=== PATIENT | female | born 1950 | race Caucasian/White ===

== ENCOUNTER 2020-03-04 20:30 | Emergency (ER) | payer OTHER, SELFPAY ==
--- NOTE | ~2020-03-04 | XR_ITS ---
XR chest 2V DATE: 03/04/2020 21:21 INDICATION: Palpitations. Dizziness. TECHNIQUE: PA and lateral views/ COMPARISON: 10/18/2008 PA and lateral chest FINDINGS: Mild cardiomegaly. Mild aortic unfolding. No hilar or mediastinal enlargement. No pulmonary infiltrate or consolidation, pleural effusion or pulmonary vascular congestion or pneumo thorax. Pectus excavatum. Moderate osteopenia. Mild degenerative spurring of the thoracic spine. IMPRESSION: Mild cardiomegaly; no active pulmonary disease Reviewed, dictated and finalized at location A.
[2020-03-04 20:33] VITALS: BP 174/100; PULSE 110; RESP 19; TEMP 36.7; O2SAT 99
--- NOTE | 2020-03-04 20:45 | ECG_ITS ---
Measurements Intervals [place] Rate: 105 P: [place]: 0 QRS: -9 QRSD: 82 T: -5 QT: 342 QTc: 454 Interpretive Statements MULTIFOCAL ATRIAL TACHYCARDIA ATRIAL PREMATURE COMPLEXES VOLTAGE CRITERIA FOR LVH BORDERLINE T WAVE ABNORMALITY- INFERIOR LEADS BASELINE ARTIFACT- I, II, AVR ABNORMAL ECG Electronically Signed On 03-04-2020 21:10:15 CDT by Go Jay D.O.
[2020-03-04] MEDS: LORazepam 0.5 MG TABLET 1 MG PO (21:01)
[2020-03-04 21:06] LABS: Basophils Absolute Auto 0.1 K/mm3 (0.0-0.1); Basophils Percent Auto 0.8 % (0.2-1.2); Eosinophils Absolute Auto 0.2 K/mm3 (0-0.3); Eosinophils Percent Auto 2.1 % (0-4.4); Hematocrit 42.3 % (37.0-47.0); Hemoglobin 14.3 g/dL (12.0-15.0); Immature Granulocyte Absolute 0.04 K/mm3 (0.00-0.031); Immature Granulocyte Percent A 0.4 % (0-0.5); Lymphocytes Absolute Auto 3.33 K/mm3 (0.9-3.2); Lymphocytes Percent Auto 35.2 % (18.3-44.2); Mean Corpuscular HGB Conc 33.8 g/dl (32-36); Mean Corpuscular Volume 88.7 fl (80-100); Monocytes Absolute Auto 0.8 K/mm3 (0.1-0.6); Monocytes Percent Auto 8.4 % (2.6-8.5); Neutrophils Percent Auto 53.1 % (45.5-73.1); Platelet Count Result 348 k/mm3 (150-375); Red Blood Count 4.77 M/mm3 (4.2-5.4); Red Cell Distribution Width 12.4 % (11.5-14.5); White Blood Count 9.5 K/mm3 (4.5-10.0)
--- NOTE | 2020-03-04 21:13 | ED.GENADULT ---
HPI - General Adult General Chief complaint: Arrhythmia/Palpitations Stated complaint: rapid heart rate Time Seen by Provider: 03/04/20 20:33 Source: patient and family Mode of arrival: ambulatory Limitations: no limitations History of Present Illness HPI narrative: Patient is 70 years old white female, used to work as a nurse, been having intermittent dizziness lately, uses Inderal for migraine headache prophylaxis, patient stopped Inderal for 2 days, later started having palpitation, with labile hypertension. History of anxiety, depression, essential tremors. Patient been checking her blood pressure numerous of times a day with different reading each time. Currently patient feeling lightheadedness. Related Data Home Medications Medication Instructions Recorded Confirmed hydrochlorothiazide 25 mg tablet 25 mg PO DAILY 09/27/19 latanoprostene bunod 0.024 % eye 1 drop EACH EYE QPM 09/28/19 drops timolol maleate (PF) 0.5 % eye 1 drop EACH EYE DAILY each 09/28/19 drops in a dropperette Allergies Allergy/AdvReac Type Severity Reaction Status Date / Time topiramate Allergy Intermediate irregular Verified 03/04/20 20:39 heartbeat citalopram [From Celexa] Allergy Mild heart Verified 03/04/20 20:39 racing codeine Allergy Mild ITCHING Verified 03/04/20 20:39 lisinopril Allergy Mild Rash Verified 03/04/20 20:39 metoprolol Allergy Mild Hives Verified 03/04/20 20:39 Review of Systems Review of Systems: Narrative: CONSTITUTIONAL: Denies fever, chills, or sweats. EYES: Denies visual changes, redness, or discharge. ENT: Denies rhinorrhea, congestion, sore throat, or otalgia. CARDIOVASCULAR: Palpitation, denies shortness of breath or chest pain RESPIRATORY: Denies cough or dyspnea. GASTROINTESTINAL: Denies abdominal pain, nausea, vomiting, or diarrhea. GENITOURINARY: Denies dysuria or hematuria. SKIN: Denies rash or itching. MUSCULOSKELETAL: Denies back pain, joint pain, or myalgia. NEUROLOGIC: Denies headache, numbness, or weakness. PSYCHIATRIC: Denies anxiety or depression. [facility] Family History Family History Mother Patient's mother is Father Patient's father is Sibling Patient's brother is Social History Social History Smoking status: Former smoker Second hand tobacco smoke exposure: No Smoking end date: 07/20/85 Alcohol intake: current Substance use: never Exam Narrative: Exam Narrative: General appearance: Well-developed, well-nourished Skin: Normal color Head: Normocephalic, nontraumatic Eyes: Clear conjunctiva ENT: Oropharynx normal, ears normal, nose normal Neck: Supple, nontender Chest and respiratory: Airway patent, no respiratory distress, no accessory muscle use Heart: Irregular irregularity Abdomen: Soft, nontender, no organomegaly, quiet bowel sounds Vascular: Normal peripheral pulses, normal capillary refill. Musculoskeletal: Normal range of motion, nontender back Neurologic: Alert and oriented ?3, CLINICAL EDUCATION MANAGER is normal as tested, no gross motor deficit Course Course Emergency Course: Stable Vital Signs Vital signs: Vital Signs Temperature 36.7 C 03/04/20 20:33 Pulse Rate 110 H 03/04/20 20:33 Respiratory Rate 19 03/04/20 20:33 Blood Pressure 174/100 H 03/04/20 20:33 Pulse Oximetry 99 03/04/20 20:33 Temperature 36.7 C 03/04/20 20:33 Pulse Rate 88 03/04/20 22:12 Respiratory Rate 19 03/04/20 22:12 Blood Pressure 152/84 H 03/04/20 22:12 Pulse Oximetry 98 03/04/20 22:12 Medical Decision Making [facility]
[2020-03-04 21:16] LABS: INR 0.9; Prothrombin Time 12.3 Seconds (11.1-14.7)
--- NOTE | 2020-03-04 21:16 | PC.NURSE ---
Patient being taken to radiology.
[2020-03-04 21:17] LABS: Partial Thromboplastin Time 26.4 SECONDS (22.3-36.8)
[2020-03-04 21:29] LABS: Troponin I < 0.012 ng/mL (0.000-0.034)
[2020-03-04 22:12] VITALS: BP 152/84; PULSE 88; RESP 19; O2SAT 98
--- NOTE | 2020-03-04 22:13 | ECG_ITS ---
Measurements Intervals [place] Rate: 91 P: 67 [place]: 179 QRS: -7 QRSD: 85 T: 4 QT: 338 QTc: 417 Interpretive Statements SINUS RHYTHM SUPRAVENTRICULAR TRIGEMINY BORDERLINE T WAVE ABNORMALITY- INFERIOR LEADS ABNORMAL ECG Electronically Signed On 03-05-2020 6:59:32 CDT by Go Jay D.O.
[2020-03-04 22:50] VITALS: BP 154/83; PULSE 86; RESP 20; O2SAT 99
== END 2020-03-04 22:48 | disposition home or self-care (01) ==
PROVIDERS: Emergency Provider Emergency Medicine; PCP Internal Medicine
DX: R42 Dizziness and giddiness (principal); R00.2 Palpitations; F41.9 Anxiety disorder, unspecified; Z87.891 Personal history of nicotine dependence
CPT/HCPCS: 36415; 71046; 84443; 84484; 85025; 85610; 85730; 93005; 99284; A9270

== ENCOUNTER 2020-03-15 10:44 | Outpatient (CLI) | payer OTHER, MEDICARE, SELFPAY ==
--- NOTE | 2020-03-19 11:50 | WPDHOLTEREM ---
Holter/Event Monitor Holter/Event Monitor Date of procedure: 03/15/20 Procedure Type: 24 hour holter monitor Indications: Palpitations Conclusion: 1. 24 hour holter monitor on 03/15/20. 2. Predominant rhythm is sinus rhythm. HR range 55-133 bpm; average HR 74 bpm. 3. There are 98 premature supraventricular complexes and 16 supraventricular couplets. There are 4 short runs of atrial tachycardia, fastest at 133 bpm and longest lasting 5 beats. 4. There are 1,140 premature ventricular complexes, 3 ventricular couplets, 27 ventricular bigeminy and 8 ventricular trigeminy. No ventricular tachycardia. 5. No sinoatrial or atrioventricular blocks. No significant pauses greater than 2 seconds. 6. Patient reports symptoms of dizziness, irregular beats which demonstrate sinus rhythm, HR range 61-91 bpm.
== END 2020-03-15 10:45 | disposition home or self-care (01) ==
PROVIDERS: PCP Internal Medicine; Visit Provider Internal Medicine
DX: R00.2 Palpitations (principal)
CPT/HCPCS: 93225; 93226

== ENCOUNTER 2020-05-02 12:19 | Outpatient (CLI) | payer OTHER, SELFPAY ==
--- NOTE | ~2020-05-02 | MM_ITS ---
EXAMINATION: MM screening nima BI w migdalia HISTORY: Screening TECHNIQUE: Craniocaudal and mediolateral oblique 3-D tomosynthesis images were obtained and synthetic 2-D images were generated. CAD analysis was submitted and interpreted. COMPARISON: Comparison to multiple prior studies sequentially, with oldest reviewed study dated 07/30. BREAST PARENCHYMAL COMPOSITION: There are scattered areas of fibroglandular density. FINDINGS: There is no evidence of suspicious mass, calcification, or architectural distortion to sugg est malignancy in either breast. There has been no suspicious interval change. IMPRESSION: 1. No mammographic evidence of malignancy. 2. Recommend routine screening mammography in one year. BI-RADS Category 1: Negative Reviewed, dictated and finalized at location D.
== END 2020-05-02 12:20 | disposition home or self-care (01) ==
LOC: ANHIMG 12:24
PROVIDERS: PCP Internal Medicine; Visit Provider Internal Medicine
DX: Z12.31 Encounter for screening mammogram for malignant neoplasm of breast (principal)
CPT/HCPCS: 77063; 77067

== ENCOUNTER 2020-06-10 14:03 | Emergency (ER) | payer OTHER, SELFPAY ==
--- NOTE | ~2020-06-10 | XR_ITS ---
EXAMINATION: XR chest 2V DATE: 06/10/2020 15:24 INDICATION: Hypertension. Palpitations. TECHNIQUE: PA and lateral views of the chest were obtained. COMPARISON: Chest radiograph dated 03/04/[address] dated 08/11/2011 FINDINGS: No significant change in mild opacities along the anterior lung bases which appear to correspond to s mall bilateral paracardial fat pads and adjacent mild atelectasis at the lingula and right middle lob e. Calcified nodule at the left lung base consistent with old granulomatous disease. No new airspace opacities, pulmonary edema, pleural effusion or pneumothorax. The cardiomediastinal silhouette is nor mal. Moderate thoracic spondylosis with chronic minimal anterior wedging of a few mid and lower thora cic vertebral bodies. Mild pectus excavatum. IMPRESSION: 1. Chronic mild atelectasis/scarring at the bilateral anterior lung bases. No other acute cardiopulmo nary disease. Reviewed, dictated and finalized at location . [facility] IMPRESSION: 1. Chronic mild atelectasis/scarring at the bilateral anterior lung bases. No o ther acute cardiopulmonary disease.
--- NOTE | 2020-06-10 14:14 | ECG_ITS ---
Measurements Intervals [place] Rate: 93 P: -3 PA: 155 QRS: 46 QRSD: 93 T: 91 QT: 347 QTc: 432 Interpretive Statements SINUS RHYTHM DELAYED PRECORDIAL R/S TRANSITION BASELINE ARTIFACT- II, III, AVL, AVF, V1 BORDERLINE ECG Electronically Signed On 06-10-2020 17:15:20 SPORTS INFORMATION DIRECTOR by Go Jay D.O.
[2020-06-10 14:26] VITALS: BP 166/102; PULSE 60; RESP 20; TEMP 36.6; O2SAT 99
[2020-06-10 14:45] LABS: Basophils Absolute Auto 0.1 K/mm3 (0.0-0.1); Basophils Percent Auto 0.8 % (0.2-1.2); Eosinophils Absolute Auto 0.2 K/mm3 (0-0.3); Eosinophils Percent Auto 1.9 % (0-4.4); Hematocrit 41.6 % (37.0-47.0); Hemoglobin 14.3 g/dL (12.0-15.0); Immature Granulocyte Absolute 0.02 K/mm3 (0.00-0.031); Immature Granulocyte Percent A 0.2 % (0-0.5); Lymphocytes Absolute Auto 2.88 K/mm3 (0.9-3.2); Lymphocytes Percent Auto 32.3 % (18.3-44.2); Mean Corpuscular HGB Conc 34.4 g/dl (32-36); Mean Corpuscular Hemoglobin 29.7 pg (26-34); Mean Corpuscular Volume 86.3 fl (80-100); Mean Platelet Volume 9.4 fl (7.4-10.4); Monocytes Absolute Auto 0.6 K/mm3 (0.1-0.6); Monocytes Percent Auto 7.1 % (2.6-8.5); Neutrophils Absolute Auto 5.1 K/mm3 (1.3-6.7); Neutrophils Percent Auto 57.7 % (45.5-73.1); Platelet Count Result 342 k/mm3 (150-375); Red Blood Count 4.82 M/mm3 (4.2-5.4); Red Cell Distribution Width 12.3 % (11.5-14.5); White Blood Count 8.9 K/mm3 (4.5-10.0)
[2020-06-10 15:01] LABS: Anion Gap 12 mmol/L (8-16); Blood Urea Nitrogen 12 mg/dL (7-17); Calcium 9.2 mg/dL (8.4-10.2); Carbon Dioxide 26 mmol/L (22-30); Chloride 99 mmol/L (98-107); Estimated Glomerular Filt Rate > 60; Glucose 112 mg/dL (65-105); Potassium 4.1 mmol/L (3.4-5.0); Sodium 137 mmol/L (137-145)
--- NOTE | 2020-06-10 15:13 | ED.ARRPALP ---
HPI - Arrhythmia/Palpitations General Chief Complaint: Arrhythmia/Palpitations Stated Complaint: low heart rate Time Seen by Provider: 06/10/20 14:24 History of Present Illness HPI narrative: Patient is a 70-year-old female who presents to the ER with palpitations. She reports that she has been following her pulse at home at the recommendation of her airplane patrol pilot. Reports for about an hour her heart rate had been in the 40s and dropped as low as 39 bpm. She reports she has been feeling lightheaded all day. Chart review shows that this lightheadedness/dizziness has been a chronic issue for her. She has seen her primary care doctor. She is having Holter monitor. Recent Holter monitoring showed bradycardia as low as 55 bpm and tachycardia up to 113 bpm. Patient reports also last 24 hours she had an episode of tachycardia up to 166 bpm for which she went and laid down to rest. She has had no chest pain or chest pressure. She is not feeling her heart race. She has not been taking her Inderal as she is concerned it may occur blood pressure or heart rate to low. Related Data Allergies Allergy/AdvReac Type Severity Reaction Status Date / Time topiramate Allergy Intermediate irregular Verified 06/10/20 15:50 heartbeat citalopram [From Celexa] Allergy Mild heart Verified 06/10/20 15:50 racing codeine Allergy Mild ITCHING Verified 06/10/20 15:50 lisinopril Allergy Mild Rash Verified 06/10/20 15:50 metoprolol Allergy Mild Hives Verified 06/10/20 15:50 Review of Systems Review of Systems: All systems reviewed & are unremarkable except as noted in HPI and below Constitutional: Constitutional: Denies chills, Denies fever(s) and Denies weakness Comments: Endorses feeling off. Cardiovascular: Cardiovascular: Denies chest pain, Denies rapid heart rate and Denies radiating jaw, neck or arm pain Respiratory: Respiratory: Denies cough, Denies dyspnea and Denies wheezing Gastrointestinal: Gastrointestinal: Denies nausea and Denies vomiting Neurologic: Denies syncope, Denies focal weakness and Denies numbness [facility] Past Medical History Medical History (Updated 06/10/20 @ 16:50 by Jacoby Carrasco MD) Bigeminy Dizziness Hyperglycemia Hyperlipidemia Migraine with aura, not intractable, without status migrainosus Thrombocytopenia, unspecified Family History Family History Mother Patient's mother is Father Patient's father is Sibling Patient's brother is Social History Social History Smoking status: Former smoker Second hand tobacco smoke exposure: No Smoking end date: 07/20/85 Alcohol intake: current Substance use: never Exam Narrative: Exam Narrative: GENERAL: Well-appearing, well-nourished, and in no acute distress. HEAD: Normocephalic, atraumatic. CHEST: Clear to auscultation. No respiratory distress. HEART: Regular rate and rhythm. Normal peripheral pulses. EXTREMITIES: Normal range of motion. No edema. SKIN: Warm, dry, no rash. NEURO: Alert and oriented x3. PSYCH: Normal mood and affect. Course Course Emergency Course: Unremarkable labs. No ectopy or bradycardia while in the ER. Normotensive. Discussed case with Dr. Tucker had no additional recommendations. We did discuss the previous Holter monitor results but not the current ones as they are not available. Patient should contact Dr. Blue's office tomorrow to schedule follow-up and further discussion. Patient does not seem to be having symptoms when she has her abnormal heart rate on her monitor. Educated patient on signs and symptoms that may occur with an abnormal heart rate for which she should be seeking evaluation in the ER. Patient verbalized understanding. Patient seems to have significant anxiety regarding her ectopy and heart rate. Vital Signs Vital
[2020-06-10 15:20] VITALS: BP 142/77; PULSE 79; RESP 16; O2SAT 98
[2020-06-10 15:50] LABS: Magnesium 1.8 mg/dL (1.6-2.3)
[2020-06-10 16:00] VITALS: BP 147/88; PULSE 75; RESP 16; O2SAT 98
[2020-06-10 17:00] VITALS: BP 153/91; PULSE 72; RESP 16; O2SAT 99
== END 2020-06-10 17:00 | disposition home or self-care (01) ==
PROVIDERS: Emergency Provider Emergency Medicine; PCP Internal Medicine
DX: R00.2 Palpitations (principal); E78.5 Hyperlipidemia, unspecified; Z87.891 Personal history of nicotine dependence; R94.31 Abnormal electrocardiogram [ECG] [EKG]
CPT/HCPCS: 36415; 71046; 80048; 83735; 85025; 93005; 99284

== ENCOUNTER → 2020-12-01 01:43 | Outpatient (CLI) | payer OTHER, SELFPAY ==
[2020-12-01 19:43] LABS: SARS-CoV-2 RNA PCR Negative
== END ==
PROVIDERS: PCP Internal Medicine; Visit Provider Internal Medicine Gastroenterology
DX: Z01.812 Encounter for preprocedural laboratory examination (principal); Z20.822 Contact with and (suspected) exposure to COVID-19
CPT/HCPCS: C9803; U0003; U0005

== ENCOUNTER 2020-12-04 02:25 | Day surgery (SDC) | payer OTHER, SELFPAY ==
[2020-11-23 15:35] VITALS: BMI 28.8
[2020-12-04 08:21] VITALS: BP 133/87; PULSE 45; RESP 18; TEMP 36.3; O2SAT 98; BMI 28.8
--- NOTE | 2020-12-04 08:34 | WPDGICN ---
Assessment and Plan Assessment and plan (1) Family history of colonic polyps: Code(s): Z83.71 - Family history of colonic polyps Status: Acute Assessment and Plan: Patient's sister has had colon polyps. Her uncle is had colon cancer. Plan is for surveillance colonoscopy at this time. This should likely be considered at intervals in the future as well. Further recommendations will be given after colonoscopy. GI Consult Note Consult date/time: 12/04/20 08:34 HPI: Dot Hooper is a 70 year old female Presents for screening colonoscopy. Patient's family history is significant that her sister had colon polyps. Patient's maternal uncle also had colon cancer. Patient reports her last exam was perhaps 10 years ago. Patient's current weight appetite bowel movements are normal. She denies any blood in her stools were she denies abdominal pain. Review of Systems Review of Systems: All systems reviewed & are unremarkable except as noted in HPI and below PMFSH Past Medical History Medical History (Updated 12/04/20 @ 08:36 by Odell Valentin MD) Anxiety Bigeminy Dizziness GERD (gastroesophageal reflux disease) Hyperglycemia Hyperlipidemia Meniere disease Migraine with aura, not intractable, without status migrainosus Thrombocytopenia, unspecified Family History Family History Mother Patient's mother is Father Patient's father is Sibling Patient's brother is Social History Social History Years smoked: 20 Smoking status: Former smoker Second hand tobacco smoke exposure: No Smoking end date: 07/20/85 Alcohol intake: current Alcohol use details: very rarely Substance use: never Living arrangements: alone Spiritual care concerns: No Meds Home Medications and Allergies Home Medications Medication Instructions Recorded Confirmed Type meclizine 25 mg tablet 25 mg PO TID PRN #60 tablet 03/05/20 11/23/20 Rx ondansetron 4 mg disintegrating 4 mg PO Q8H PRN #30 tablet 06/26/20 11/23/20 Rx tablet sumatriptan succinate 100 mg tablet See Rx Instructions PO .COMPLEX 06/26/20 11/23/20 Rx #12 tablet lorazepam 1 mg tablet 1 mg PO BID PRN #30 tablet 11/05/20 11/23/20 Rx sodium,potassium,mag sulfates 17.5 See Rx Instructions PO .COMPLEX 11/14/20 11/23/20 Rx gram-3.13 gram-1.6 gram oral soln #354 ml hydrochlorothiazide 25 mg PO DAILY PRN 11/23/20 11/23/20 History propranolol [Inderal] 60 mg PO DAILY 11/23/20 11/23/20 History Allergies Allergy/AdvReac Type Severity Reaction Status Date / Time topiramate Allergy Intermediate irregular Verified 12/04/20 08:20 heartbeat citalopram [From Celexa] Allergy Mild heart Verified 12/04/20 08:20 racing codeine Allergy Mild ITCHING Verified 12/04/20 08:20 lisinopril Allergy Mild Rash Verified 12/04/20 08:20 metoprolol Allergy Mild Hives Verified 12/04/20 08:20 verapamil AdvReac Severe Headache Verified 12/04/20 08:20 Vital Signs Vital Signs - 24 hr 12/04/20 08:21 Temperature 97.4 F L Pulse Rate 45 L Respiratory Rate 18 Blood Pressure 133/87 Pulse Oximetry 98 Exam Narrative: Exam Narrative: Physical exam reveals patient be alert. Vital signs stable. HEENT exam is unremarkable. Lungs are clear to auscultation and percussion. Heart is without murmur or extra sounds. Abdominal exam bowel sounds are present soft nontender with no organomegaly. Digital external rectal exam is normal.
[2020-12-04] MEDS: LACTATED RINGERS 1,000 ML 150 ML IV CONT (08:39)
--- NOTE | 2020-12-04 08:46 | WPDANESEPPF ---
Anes - Initial Pre Proc Eval Procedure: Operation Date: 12/04/20 09:45 Proposed Procedures p Screening Colonoscopy - Odell Valentin MD Date/Time: 12/04/20 08:46 Surgeon: Odell Valentin MD Pre Op Diagnosis: neoplasm screening Patient Data Age: 70 Gender: F Height: 1.73 m Weight: 85.9 kg Last Vital Signs Temp 36.3 C L 12/04/20 08:21 Pulse 45 L 12/04/20 08:21 Resp 18 12/04/20 08:21 BP 133/87 12/04/20 08:21 Pulse Ox 98 12/04/20 08:21 Allergies Allergy/AdvReac Type Severity Reaction Status Date / Time topiramate Allergy Intermediate irregular Verified 12/04/20 08:20 heartbeat citalopram [From Celexa] Allergy Mild heart Verified 12/04/20 08:20 racing codeine Allergy Mild ITCHING Verified 12/04/20 08:20 lisinopril Allergy Mild Rash Verified 12/04/20 08:20 metoprolol Allergy Mild Hives Verified 12/04/20 08:20 verapamil AdvReac Severe Headache Verified 12/04/20 08:20 Home Medications Medication Instructions Recorded Confirmed Type meclizine 25 mg tablet 25 mg PO TID PRN #60 tablet 03/05/20 11/23/20 Rx ondansetron 4 mg disintegrating 4 mg PO Q8H PRN #30 tablet 06/26/20 11/23/20 Rx tablet sumatriptan succinate 100 mg tablet See Rx Instructions PO .COMPLEX 06/26/20 11/23/20 Rx #12 tablet lorazepam 1 mg tablet 1 mg PO BID PRN #30 tablet 11/05/20 11/23/20 Rx sodium,potassium,mag sulfates 17.5 See Rx Instructions PO .COMPLEX 11/14/20 11/23/20 Rx gram-3.13 gram-1.6 gram oral soln #354 ml hydrochlorothiazide 25 mg PO DAILY PRN 11/23/20 11/23/20 History propranolol [Inderal] 60 mg PO DAILY 11/23/20 11/23/20 History Patient hx anesthesia problems: none Family hx anesthesia problems: none PMFSH Past Medical History Medical History (Updated 12/04/20 @ 08:36 by Odell Valentin MD) Anxiety Bigeminy Dizziness GERD (gastroesophageal reflux disease) Hyperglycemia Hyperlipidemia Meniere disease Migraine with aura, not intractable, without status migrainosus Thrombocytopenia, unspecified Family History Family History Mother Patient's mother is Father Patient's father is Sibling Patient's brother is Social History Social History Years smoked: 20 Smoking status: Former smoker Second hand tobacco smoke exposure: No Smoking end date: 07/20/85 Alcohol intake: current Alcohol use details: very rarely Substance use: never Living arrangements: alone Spiritual care concerns: No Anes - Eval Final PreProcedure Day of Procedure 12/04/20 08:46 Patient weight: overweight Heart: regular rate and rhythm Lungs: clear to auscultation and normal air movement Airway: Mallampati scale class II Neurological: alert and oriented Last oral intake: >/= 8 hours ASA classification: III Emergent: no Anesthetic plan: proceed Anesthesia type and monitoring: general GIVS and standard monitoring Informed Consent: The patient's anesthetic plan and its attendant risks and benefits were discussed with the patient/family/POA. Questions were solicited and answers provided to the satisfaction of the patient/family/POA.
[2020-12-04 09:39] VITALS: BP 110/69; PULSE 77; RESP 16; O2SAT 97
[2020-12-04 09:49] VITALS: BP 114/73; PULSE 68; RESP 21; O2SAT 98
[2020-12-04 09:59] VITALS: BP 141/82; PULSE 66; RESP 20; O2SAT 98
== END 2020-12-04 10:13 | disposition home or self-care (01) ==
PROVIDERS: PCP Internal Medicine; Visit Provider Internal Medicine Gastroenterology
PROC: 0DJD8ZZ Inspection of Lower Intestinal Tract, Via Natural or Artificial Opening Endoscopic (ICD-10-PCS; CPT 45378; principal; 2020-12-04 09:45)
DX: Z12.11 Encounter for screening for malignant neoplasm of colon (principal); K57.30 Diverticulosis of large intestine without perforation or abscess without bleeding; Z83.71 Family history of colonic polyps; E78.5 Hyperlipidemia, unspecified; K21.9 Gastro-esophageal reflux disease without esophagitis; F41.9 Anxiety disorder, unspecified; Z87.891 Personal history of nicotine dependence
CPT/HCPCS: G0105; J2704; J7120

== ENCOUNTER 2021-01-11 15:42 | Outpatient (CLI) | payer OTHER, SELFPAY ==
--- NOTE | ~2021-01-11 | CT_ITS ---
EXAMINATION: CT abdomen pelvis w con DATE: 01/11/2021 16:45 INDICATION: Left lower quadrant abdominal pain. TECHNIQUE: Computed tomography (CT) of the abdomen and pelvis was performed with 100 mL Omnipaque 350 intravenous contrast. Automated exposure control and iterative reconstruction technique were employe d. The dose-length product was 734.66 mGy-cm. COMPARISON: CT pelvis 10/04/2010, chest CT 08/11/2011 FINDINGS: The visualized portions of the lung bases demonstrate mild atelectasis and mild chronic josé miguel g disease. There is mild bronchiectasis bilaterally. There is a chronic 4 mm nodule in left lower lob e, likely benign. No pleural effusion. There is left atrial enlargement the heart. No pericardial eff usion. There is a moderate-sized sliding hiatal hernia. The liver, gallbladder, spleen, pancreas, adr enal glands, and left kidney are normal. There is a 5 mm cyst in right kidney. There is diverticulosi s of the colon without evidence of diverticulitis. There are no dilated loops of bowel. The appendix is normal. There are no pathologically enlarged lymph nodes. There is no free intraperitoneal fluid. There is severe lower lumbar spondylosis. There is moderate thoracic spondylosis. IMPRESSION: 1. Moderate-sized sliding hiatal hernia. Reviewed, dictated and finalized at location A.
[2021-01-11 16:32] LABS: Estimated Glomerular Filt Rate 44
== END 2021-01-11 15:43 | disposition home or self-care (01) ==
PROVIDERS: PCP Internal Medicine; Visit Provider Internal Medicine
DX: R10.9 Unspecified abdominal pain (principal); K44.9 Diaphragmatic hernia without obstruction or gangrene
CPT/HCPCS: 74177; Q9967

== ENCOUNTER 2021-05-04 07:25 | Outpatient (CLI) | payer OTHER, SELFPAY ==
--- NOTE | ~2021-05-04 | MM_ITS ---
EXAMINATION: MM screening nima BI w migdalia HISTORY: Screening mammogram TECHNIQUE: Craniocaudal and mediolateral oblique 3-D tomosynthesis images were obtained and synthetic 2-D images were generated. CAD analysis was submitted and interpreted. COMPARISON: 05/02/2020, 03/01/2019, 02/20/2018 bilateral digital screening mammogram examinations BREAST PARENCHYMAL COMPOSITION: There are scattered areas of fibroglandular density. FINDINGS: There is no evidence of suspicious mass, calcification, or architectural distortion to sugg est malignancy in either breast. There has been no suspicious interval change. IMPRESSION: 1. No mammographic evidence of malignancy. 2. Recommend routine screening mammography in one year. BI-RADS Category 1: Negative Reviewed, dictated and finalized at location A.
== END 2021-05-04 07:26 | disposition home or self-care (01) ==
LOC: ANHIMG 07:27
PROVIDERS: PCP Internal Medicine; Visit Provider Internal Medicine
DX: Z12.31 Encounter for screening mammogram for malignant neoplasm of breast (principal)
CPT/HCPCS: 77063; 77067

== ENCOUNTER 2021-05-15 13:05 | Outpatient (RCR) | payer OTHER, SELFPAY ==
--- NOTE | 2021-05-15 15:49 | PTOPEVAL ---
PHYSICAL THERAPY EVALUATION Thank you for referring Dot Hooper to [facility].? Dot was evaluated for the dx of BPPV. The patient is scheduled to be seen for therapy? 1 x/week for up to 4 weeks (depending on recovery time). Please review, sign, date and return this plan of care REBECCA. I agree with and certify that the following plan of care is medically necessary. 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 The patient reports having dizziness that is worse more often when she sits down after being very busy on her feet. The symptoms will last a few minutes and are moderate to severe. The never affects during sleep or laying. Patient will get nauseated at times and the symptoms are slower to recover. The patient will look up and tip head back which controls nausea but must stay tipped for more than 5 minutes or symptoms will return. Diagnostic Tests Other Tests For This Problem Yes: meds checked, BP checked, EKG clear, Prior Level of Function Medications Home Meds (Include: OTC, RX, Vitamins, endural, HCTZ, emitrex prn, Herbals, Dose, Route,and Frequency) advil prn, benadryl prn for Query Text:Home Med Entries Will No migraine relief Longer Recall From Past Visits. Home Meds Must Be Re-entered With Each Visit. Pain Assessment Timing of Pain Assessment Timing of Pain Assessment Assessment Self Report Self Report Pain Level 0 Pain Score Pain Score 0: Self Report Cervical and Lumbar ROM Cervical ROM Reason Not Measured WFL/Left,WFL/Right Upper Extremity Range of Motion General Upper Extremity Range of Motion Reason Not Measured
--- NOTE | 2021-05-27 13:45 | PCPTNOTE ---
Patient called & cancelled scheduled appointment this date due to not feeling well.
--- NOTE | 2021-05-31 16:17 | PCPTNOTE ---
PHYSICAL THERAPY DISCHARGE Attending Provider: Jamie Dee MD Patient:Dot Hooper Date of :1950 Patient has not returned for any further treatments since 05/15/2021. The patient had completed her exercises and gained relief of the vertigo, therefore she had no further PT needs, and will be discharged at this time. Information gathered from a phone call to the patient after cancelling her 2nd appt. Patient?s initial visit was on 05/15/2021 13:15 and she had a total of 1 visit. The goals have been met. Thank you for referring this patient to [facility]. Please review, sign, date and return this discharge summary REBECCA. I have been updated about the patient's current status and I agree with discharge from the above service at this time. Referring Physician Date
--- NOTE | 2021-05-31 16:21 | PCPTNOTE ---
PT called pt since pt cancelled 2nd/only follow up visit. Patient had had Covid booster and became violently ill afterwards so she was unable to come in. Phone conversation indicates that pt is recovered from dizziness through a change in medication administration and has been free of dizziness since the change. The patient reports no further PT needs and PT agrees.
== END 2021-06-03 16:36 | disposition home or self-care (01) ==
LOC: ANHPT 13:05
PROVIDERS: PCP Internal Medicine; Visit Provider Otolaryngology
DX: H81.10 Benign paroxysmal vertigo, unspecified ear (principal)
CPT/HCPCS: 97110; 97162

== ENCOUNTER 2021-05-25 12:49 | Emergency (ER) | payer OTHER, SELFPAY ==
[2021-05-25] VITALS (22 sets, daily range): BP systolic 150–181; BP diastolic 77–114; PULSE 62–92; RESP 9–22; TEMP 36.6–36.7; O2SAT 95–98
[2021-05-25 13:17] LABS: Basophils Absolute Auto 0.1 K/mm3 (0.0-0.1); Basophils Percent Auto 0.6 % (0.2-1.2); Eosinophils Absolute Auto 0.1 K/mm3 (0-0.3); Eosinophils Percent Auto 1.6 % (0-4.4); Hematocrit 42.6 % (37.0-47.0); Hemoglobin 14.4 g/dL (12.0-15.0); Immature Granulocyte Absolute 0.03 K/mm3 (0.00-0.031); Immature Granulocyte Percent A 0.4 % (0-0.5); Lymphocytes Absolute Auto 2.21 K/mm3 (0.9-3.2); Lymphocytes Percent Auto 27.6 % (18.3-44.2); Mean Corpuscular HGB Conc 33.8 g/dl (32-36); Mean Corpuscular Hemoglobin 30.3 pg (26-34); Mean Corpuscular Volume 89.5 fl (80-100); Mean Platelet Volume 9.3 fl (7.4-10.4); Monocytes Absolute Auto 0.6 K/mm3 (0.1-0.6); Monocytes Percent Auto 7.2 % (2.6-8.5); Neutrophils Percent Auto 62.6 % (45.5-73.1); Platelet Count Result 330 k/mm3 (150-375); Red Blood Count 4.76 M/mm3 (4.2-5.4); Red Cell Distribution Width 12.7 % (11.5-14.5)
[2021-05-25 13:27] LABS: Partial Thromboplastin Time 26.4 SECONDS (22.3-36.8); Prothrombin Time 13.2 Seconds (11.1-14.7)
[2021-05-25 13:29] LABS: Alanine Aminotransferase 18 U/L (4-35); Albumin Level 4.5 g/dL (3.5-5.1); Alkaline Phosphatase 69 U/L (38-126); Anion Gap 7 mmol/L (8-16); Aspartate Amino Transferase 27 U/L (14-36); Bilirubin,Total 1.9 mg/dL (0.2-1.3); Blood Urea Nitrogen 10 mg/dL (7-17); Calcium 9.5 mg/dL (8.4-10.2); Carbon Dioxide 28 mmol/L (22-30); Chloride 104 mmol/L (98-107); Estimated CRCL calculation 52 ml/min; Estimated Glomerular Filt Rate 55; Glucose 117 mg/dL (65-110); Sodium 139 mmol/L (137-145)
--- NOTE | 2021-05-25 13:45 | ED.GIBLEED ---
HPI - GI Bleed General Chief complaint: GI Bleed Stated complaint: rectal bleed Time Seen by Provider: 05/25/21 13:01 History of Present Illness HPI Narrative: Patient is a 71-year-old female who presents ER with concerns for GI bleed. Patient had a Covid booster shot yesterday. Then in the evening after eating a frozen chicken pot pie she ended up having 5-6 episodes of violent diarrhea with terrible abdominal cramping. When she woke up today she still had some mild discomfort in her lower abdomen that was cramping but then she passed several blood clots when she had a bowel movement which concerned her. They were bright red. She does have history of diverticulosis and internal hemorrhoids however the internal hemorrhoids had resolved on a recent colonoscopy. She has no nausea or vomiting. She is feeling well at this time. Related Data Home Medications Medication Instructions Recorded Confirmed hydrochlorothiazide 25 mg PO DAILY PRN 11/23/20 01/01/21 Allergies Allergy/AdvReac Type Severity Reaction Status Date / Time topiramate Allergy Intermediate irregular Verified 05/25/21 13:27 heartbeat citalopram [From Celexa] Allergy Mild heart Verified 05/25/21 13:27 racing codeine Allergy Mild ITCHING Verified 05/25/21 13:27 lisinopril Allergy Mild Rash Verified 05/25/21 13:27 metoprolol Allergy Mild Hives Verified 05/25/21 13:27 verapamil AdvReac Severe Headache Verified 05/25/21 13:27 gemfibrozil [From Lopid] AdvReac Vomiting Verified 05/25/21 13:27 Review of Systems Review of Systems: All systems reviewed & are unremarkable except as noted in HPI and below Constitutional: Constitutional: Denies chills, Denies fever(s) and Denies weakness ENT: Denies nasal congestion and Denies sore throat Respiratory: Respiratory: Denies cough, Denies dyspnea and Denies wheezing Gastrointestinal: Gastrointestinal: Reports abdominal pain, Reports diarrhea, Denies nausea and Denies vomiting Genitourinary: Genitourinary: Denies nocturia, Denies dysuria and Denies flank pain PMFSH Past Medical History Medical History Anxiety Bigeminy Dizziness GERD (gastroesophageal reflux disease) Hyperglycemia Hyperlipidemia Meniere disease Migraine with aura, not intractable, without status migrainosus Thrombocytopenia, unspecified Family History Family History Mother Patient's mother is Father Patient's father is Sibling Patient's brother is Social History Social History Years smoked: 20 Smoking status: Former smoker Second hand tobacco smoke exposure: No Smoking end date: 07/20/85 Alcohol intake: current Alcohol use details: very rarely Substance use: never Spiritual care concerns: No Exam Narrative: GENERAL: Well-appearing, well-nourished, and in no acute distress. HEAD: Normocephalic, atraumatic. CHEST: Clear to auscultation. No respiratory distress. HEART: Regular rate and rhythm. Normal peripheral pulses. ABDOMEN: Soft, mild discomfort diffusely without rebound or guarding, no point tenderness, nondistended. EXTREMITIES: Normal range of motion. No edema. SKIN: Warm, dry, no rash. NEURO: Alert and oriented x3. PSYCH: Normal mood and affect. Course Course Emergency Course: Patient informed results. Feels well. Suspect side effect to vaccination. Patient is not on blood thinners. Discharge home. Vital Signs Vital signs: Vital Signs Temperature 97.8 F 05/25/21 13:18 Pulse Rate 80 05/25/21 13:18 Respiratory Rate 14 05/25/21 13:18 Blood Pressure 181/98 H 05/25/21 13:18 Pulse Oximetry 95 05/25/21 13:18 Temperature 97.8 F 05/25/21 13:18 Pulse Rate 62 05/25/21 14:31 Respiratory Rate 15 05/25/21 14:31 Blood Pressure 156/91 H 05/25/21 14:30 Pulse Ox
[2021-05-25] MEDS: HYDROmorphone HCL INJ (*CRX) 1 MG/ML SYR IV PUSH (16:13)
== END 2021-05-25 16:15 | disposition home or self-care (01) ==
PROVIDERS: Emergency Provider Emergency Medicine; PCP Internal Medicine
DX: K52.1 Toxic gastroenteritis and colitis (principal); T50.B95A Adverse effect of other viral vaccines, initial encounter; E78.5 Hyperlipidemia, unspecified; H81.09 Meniere's disease, unspecified ear; Z87.891 Personal history of nicotine dependence; F41.9 Anxiety disorder, unspecified
CPT/HCPCS: 36415; 80053; 85025; 85610; 85730; 86850; 86900; 86901; 96374; 99284; J1170

== ENCOUNTER 2022-07-30 15:55 | Outpatient (CLI) | payer OTHER, SELFPAY ==
--- NOTE | ~2022-07-30 | MM_ITS ---
EXAMINATION: MM screening nima BI w migdalia HISTORY: Screening mammogram TECHNIQUE: Craniocaudal and mediolateral oblique 3-D tomosynthesis images were obtained and synthetic 2-D images were generated. CAD analysis was submitted and interpreted. COMPARISON: 05/04/2021, 05/02/2020, 03/01/2019 bilateral screening mammogram examinations BREAST PARENCHYMAL COMPOSITION: There are scattered areas of fibroglandular density. FINDINGS: There is no evidence of suspicious mass, calcification, or architectural distortion to sugg est malignancy in either breast. There has been no suspicious interval change. IMPRESSION: 1. No mammographic evidence of malignancy. 2. Recommend routine screening mammography in one year. BI-RADS Category 1: Negative Reviewed, dictated and finalized at location A. RVISOR PHOTOCOMPOSITION
== END 2022-07-30 15:56 | disposition home or self-care (01) ==
LOC: ANHIMG 15:56
PROVIDERS: PCP Internal Medicine; Visit Provider Internal Medicine
DX: Z12.31 Encounter for screening mammogram for malignant neoplasm of breast (principal)
CPT/HCPCS: 77063; 77067

== ENCOUNTER 2023-09-14 14:40 | Outpatient (CLI) | payer OTHER, SELFPAY ==
--- NOTE | ~2023-09-14 | MM_ITS ---
EXAMINATION: MM screening nima BI w migdalia HISTORY: Screening TECHNIQUE: Craniocaudal and mediolateral oblique 3-D tomosynthesis images were obtained and synthetic 2-D images were generated. CAD analysis was submitted and interpreted. COMPARISON: Comparison to multiple prior studies sequentially, with oldest reviewed study dated 11/26. BREAST PARENCHYMAL COMPOSITION: There are scattered areas of fibroglandular density. FINDINGS: There is no evidence of suspicious mass, calcification, or architectural distortion to sugg est malignancy in either breast. There has been no suspicious interval change. IMPRESSION: 1. No mammographic evidence of malignancy. 2. Recommend routine screening mammography in one year. BI-RADS Category 1: Negative Reviewed, dictated and finalized at location A. ING TRACTOR OPERATOR
== END 2023-09-14 14:41 | disposition home or self-care (01) ==
LOC: ANHIMG 14:43
PROVIDERS: PCP Internal Medicine; Visit Provider Internal Medicine
DX: Z12.31 Encounter for screening mammogram for malignant neoplasm of breast (principal)
CPT/HCPCS: 77063; 77067

== ENCOUNTER 2024-11-07 15:22 | Outpatient (CLI) | payer OTHER, SELFPAY ==
--- NOTE | ~2024-11-07 | MM_ITS ---
EXAMINATION: [facility] HISTORY: Screening TECHNIQUE: Craniocaudal and mediolateral oblique 3-D tomosynthesis images were obtained and synthetic 2-D images were generated. CAD analysis was submitted and interpreted. COMPARISON: 09/14/2023 and dating back to 05/02/2020 BREAST PARENCHYMAL COMPOSITION: The breasts are heterogeneously dense, which may obscure small masses . FINDINGS: Punctate calcifications detected bilaterally, vascular in origin and benign in appearance. Stable parenchymal pattern without suspicious microcalcifications, architectural distortion, discrete masses or significant asymmetry. IMPRESSION: 1. No mammographic evidence of malignancy. 2. Recommend routine screening mammography in one year. BI-RADS Category 2: Benign finding(s). Reviewed, dictated and finalized at location A.
--- OUTSIDE RECORDS SUMMARY | 2024-11-07 17:21 | XMS_ITS | Continuity of Care Document ---
Author Organization [facility] Address [address] [place] [address] utive [facility] [address] [place] [address] Phone Care Team Providers Care Occupational Therapy Aide Name Role Phone Laura Noguera Unavailable Unavailable Procedures Procedure Date Eye Exam, New Patient Refraction Advance Directives Directive Yes / No Effective Date File Name No Information Encounters Encounter Description Practice Location Reason(s) For Visit Diagnoses Date Provider Providers Copied on Encounter [facility], [address] [place] [address] [address], [place], [place], [id number], [place] tel:[phone] [facility] [place] No Information 0 Poornima Sanchez. [address] [facility] , [address], [place], [address], [place]. tel:[phone] Family History Family Member Type Diagnosis Age At Onset No Information Payers Payer name Insurance type Covered democrat ID Authoriza tion(s) [employer] Vision Plan 09 [id number] Social History Type Description Quantity Date Captured Comments Sex Female Smoking Status No Information Chief Complaint And Reason For Visit No Information Reason For Referral Reason For Referral No Information History Of Present Illness Encounter Date Complaint History Of Prese nt Illness No Information Functional Status Date Functional Assessmen t No Information Instructions Date Instruction Additional Infor mation No Information Assessments Type Assessment Date No Information Patient Care Teams Name Effective Dates (start - stop) Status Members No Information
--- OUTSIDE RECORDS SUMMARY | 2024-11-07 17:21 | XMS_ITS | Referral Summary ---
Author Organization [facility] [address] [place] [address] [address] [place] [address] Care Team Providers Care Air Marshal Name Role Phone Delgado Warner DO Primary Care Provider [phone] Encounters Date Type Department Care Team Description 09/30/2024 Orders Only [facility] Cardiology [address] [place] [address] Marty Bravo MD 09/29/2024 1:00 PM CDT Office Visit [facility] Cardiology [address] [place] [address] Jose C Pleitez MD Palpitations (Primary Dx); Mitral valve disease; Essential hypertension; Mixed hyperlipidemia; Premature ventricular contractions (PVCs) (VPCs); Premature atrial beats; Precordial pain from Last 3 Months Allergies Active Allergy Reactions Criticality Noted Date Comments Acetaminophen Codeine Itching Low 11/21/2011 Lisinopril Itching Low 07/27/2018 Gemfibrozil Other (See comments) Low 09/02/2021 GI sx Metoprolol Hives Medium 07/27/2018 Nsaids (Non-Steroidal Anti-Inflammatory Drug) Stomach upset Low 04/25/2009 GI upset Topiramate Other (See comments) Low 11/21/2011 Irregular Heartbeat Verapamil Other (See comments),Headache Low 08/21/2020 Headache, and high blood pressure Medications hydroCHLOROthiazide (HYDRODIURIL) 25 mg tablet Take 1 tablet (25 mg total) by mouth as needed 8 Active ibuprofen (ADVIL,MOTRIN) 200 mg tab/cap Take 1 tablet/capsu le (200 mg total) by mouth every 6 (six) hours as needed for pain Active LORazepam (ATIVAN) 0.5 mg tablet Take by mouth 2 (two) times a day as needed 0 Active meclizine (ANTIVERT) 25 mg tablet 0 Active SUMAtriptan (IMITREX) 100 mg tablet Take by mouth daily as needed 1 Active diphenhydrAMINE (BENADRYL) elixir 12.5 mg/5 mL Take 5 mL (12.5 mg total) by mouth as needed Active ondansetron ODT (ZOFRAN-ODT) 4 mg disintegrating tablet DISSOLVE 1 TABLET IN MOUTH EVERY 8 HOURS NEEDED FOR NAUSEA AND VOMITING 0 Active timolol (TIMOPTIC) 0.5 % ophthalmic solution INSTILL 1 DROP INTO EACH EYE IN THE MORNING 1 Active latanoprost (XALATAN) 0.005 % ophthalmic solution INSTILL 1 DROP INTO EACH EYE ONCE DAILY AT BEDTIME 0 Active propranolol LA (INDERAL LA) 60 mg 24 hr capsule Take 1 capsule by mouth once daily 30 capsule 1 Active multivitamin-minera ls-lutein (Multivitamin 50 Plus) tablet Take by mouth daily Active omega-3 fatty acids (LOVAZA) 1 gram capsule Take 1 capsule (1,000 mg total) by mouth daily Active cyclobenzaprine (FLEXERIL) 5 mg tablet Take 1 tablet (5 mg total) by mouth 2 (two) times a day as needed 4 Active Active Problems Problem Noted Date Diagnosed Date Medication intolerance 09/02/2021 Precordial pain 09/02/2021 Dizziness 09/02/2021 Premature ventricular contractions (PVCs) (VPCs) 08/21/2020 Premature atrial beats 08/21/2020 Anxiety 08/21/2020 Mixed hyperlipidemia 07/31/2018 Family history of cardiac arrhythmia 07/31/2018 Mitral valve disease 07/27/2018 Essential hypertension 07/27/2018 Palpitations 12/03/2013 Overview (10/24/2016): PALPITATIONS Cephalalgia 06/10/2010 Acquired deviated nasal septum 06/10/2010 Resolved Problems Problem Noted Date Diagnosed Date Resolved Date Abnormal echocardiogram 05/13/202209/17 Ventricular premature beats 12/03/2013 05/13/2022 Overview (10/23/2016): VENTRICULAR PREMATURE BEATS Social History Tobacco Use Types Packs/Day Years Used Date Smoking Tobacco: Former Tobacco Cessation:Counseling Given: Not Answered Personal Safety Answer Date Recorded Have you ever been in or are you currently in a harmful physical or emotional relationship or is someone making you feel afraid or unsafe? 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 Gender Identity Not on file Sexual Orientation Not on file Last Filed Vital Signs Vital Sign Reading Time Taken Comments Blood Pressure 128/82 09/29/2024 12:57 PM CDT Pulse 64 09/29/2024 12:57 PM CDT Temperature - - Respiratory Rate 16 12/24/2022 1:35 PM CDT Oxygen Saturation 96% 09/29/2024 12:57 PM CDT Inhaled Oxygen Concentration - - Weight 89.4 kg (197 lb 3.2 oz) 09/29/2024 12:57 PM CDT Height 172.7 cm (5' 8 ) 09/29/2024 12:57 PM CDT Body Mass Index 29.98 09/29/2024 12:57 PM CDT Plan of Treatment Not on file Insurance [employer] [facility] [id number] [facility] [id number] Care Teams Air Marshal Relationship Specialty Start Date End Date Delgado Warner DO PCP - General Internal Medicine 01/07/24
--- OUTSIDE RECORDS SUMMARY | 2024-11-07 17:21 | XMS_ITS | Clinical Summary ---
Author Organization [facility] [address] Address [address] [place] [address] Care Team Providers Care Mitigation Supervisor Name Role Phone Delgado Warner DO Primary Care Provider Allergies Active Allergy Reactions Criticality Noted Date [...] 12/03/2013 05/13/2022 Overview (10/23/2016): VENTRICULAR PREMATURE BEATS Encounters Date Type Department Care Team Description 09/30/[address] [facility] Cardiology [address] [address] [place] [address] Provider, MD Marty 09/29/2024 1:00 PM CDT Office Visit [facility] Cardiology [address] [place] [address] Jose C Pleitez MD Palpitations (Primary Dx); Mitral valve disease; Essential hypertension; Mixed hyperlipidemia; Premature ventricular contractions (PVCs) (VPCs); Premature atrial beats; Precordial pain from Last 3 Months Medical History Medical History Date Comments Hx Other Medical Migraines, Dr. 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 Gender Identity Not on file Sexual Orientation Not on file Obstetrics History Last Filed Vital Signs Vital Sign Reading [...] 09/29/2024 12:57 PM CDT Plan of Treatment Health Maintenance Due Date Last Done Comments Colon Cancer Screening-Colonoscopy 1950 Depression Screening 1950 Hepatitis C Screening 1950 Osteoporosis Screening-Bone Density Scan 1950 Hepatitis B Screening 1967 Pneumococcal vaccine 65+ (1 of 2 - PCV) 02/19/1968 Zoster Vaccine (1 of 2) 1999 Well Visit 65+ 2014 DTaP/Tdap/Td Vaccine (2 - Td or Tdap) 01/17/201807/2007 Fall Risk Assessment 12/25/2023 12/24/2022 Influenza Vaccine (#1) 2024 05/03/2019, 2017 Insurance [employer] [facility] [address] [facility] [address] Member Subscriber Plan / Payer (Ef fective 2019-Present) Name:Dot Hooper Member ID:[id number] Relation to Subscriber:Self Name:Dot Hooper Subscriber ID:[id number] Payer ID:[id number] Type:[employer] HMO/PPO Address: [facility] [id number] [id number] Care Teams Mitigation Supervisor Relationship Specialty Start Date End Date Delgado Warner DO PCP - General Internal Medicine 01/07/24
--- OUTSIDE RECORDS SUMMARY | 2024-11-07 17:21 | XMS_ITS | Clinical Summary ---
Author Organization [facility] Address [address] [place] [address] Care Team Providers Care Supervisor Benzene Refining Name Role Phone Arjun Ayala DO Primary Care Provider [phone] Allergies Active Allergy Reactions Criticality Noted Date Comments Codeine Itching Low 11/21/2011 Topiramate Other (See Comments) 11/21/2011 Irregular Heartbeat Medications MULTIVITAMINS WITH FLUORIDE (MULTI-VITAMIN ORAL) Take by mouth daily. Active ibuprofen (ADVIL) 200 mg Oral tablet Take by mouth 1 time daily as needed. Active divalproex SR 24 hour (DEPAKOTE ER) 500 mg Oral tablet Take by mouth 3 times daily. Active SUMAtriptan (IMITREX) 100 mg Oral tablet Take by mouth 1 time daily as needed. Active GUAIFENESIN (MUCINEX ORAL) Take by mouth 1 time daily as needed. Active FEXOFENADINE HCL (SAHRA ORAL) Take by mouth 1 time daily as needed. Active NAPROXEN ORAL Take by mouth 1 time daily as needed. Active citalopram (CELEXA) 20 mg Oral tablet Take 1 Tab by mouth daily at bedtime. 30 Tab 2 02/02/2012 Active Active Problems Problem Noted Date Diagnosed Date Chronic migraine without aura 02/02/2012 Mitral valve prolapse 02/02/2012 High cholesterol 11/24/2011 Gastric ulcer, unspecified a s acute or chronic, without mention of hemorrhage, perforation, or obstruction 11/24/2011 Heartburn 11/24/2011 Generalized anxiety disorder 11/24/2011 Resolved Problems Problem Noted Date Diagnosed Date Resolved Date Heart disease 11/24/2011 02/02/2012 Unspecified sinusitis (chronic) 11/24/2011 02/02/2012 Family History Medical History Relation Name Comments Heart Failure Father Alzheimer's Disease Mother Stroke Mother Relation Name Status Comments Father Mother Social History Tobacco Use Types Packs/Day Years Used Date Smoking Tobacco: Never Smokeless Tobacco: Never Alcohol Use Standard Drinks/Week Comments No 0 (1 standard drink = 0.6 oz pur e alcohol) Comments No Sex and Gender Information Value Date Recorded Sex Assigned at Not on file 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 Gender Identity Not on file Sexual Orientation Not on file Last Filed Vital Signs Vital Sign Reading Time Taken Comments Blood Pressure 148/88 02/02/2012 12:43 PM CDT Pulse 84 02/02/2012 12:43 PM CDT irre gular Temperature - - Respiratory Rate - - Oxygen Saturation - - Inhaled Oxygen Concentration - - Weight 79.8 kg (176 lb) 02/02/2012 12:43 PM CDT Height 172.7 cm (5' 8 ) 02/02/2012 12:43 PM CDT Body Mass Index 26.76 02/02/2012 12:43 PM CDT Plan of Treatment Health Maintenance Due Date Last Done Comments DTAP/TDAP/TD VACCINES (1 - Tdap) 02/19/1968 COLORECTAL SCREENING 1994 Colorectal Cancer Screening 1994 FIT-DNA Q 3 years 1994 FIT/FOBT Q 1 year 1994 Flex Sig/CT Colonography Q 5 years 1994 PNEUMOCOCCAL VACCINE 50+ YEARS (1 of 1 - PCV) 02/18/19 99 ZOSTER VACCINE (1 of 2) 1999 OSTEOPOROSIS SCREENING 2014 INFLUENZA VACCINE (#1) 2024 RSV VACCINE (60+ or ) (1 - 1-dose 75+ series) 02/19/2024 Insurance [employer] OPEN ACCESS Care Teams Supervisor Benzene Refining Relationship Specialty Start Date End Date Arjun Ayala DO [address] [facility] [address] [place] [address] PCP - General Internal Medicine 02/02/12
--- OUTSIDE RECORDS SUMMARY | 2024-11-07 17:21 | XMS_ITS ---
Author Organization Unknown Medications Medication Instructions Effective Dates (start - stop) Status cyclobenzaprine hydrochlorid e 5 MG Oral Tablet - Completed 12 HR timolol 5 MG/ML Ophtha lmic Solution - Completed atorvastatin 20 MG Oral Tablet 2023-08-27 T00:00:00Z - Completed latanoprost 0.05 MG/ML Ophth almic Solution - Completed 12 HR timolol 5 MG/ML Ophtha lmic Solution - Completed lorazepam 1 MG Oral Tablet [id number]: 00:00Z - Completed 24 HR propranolol hydrochlor mellisa 60 MG Extended Release Oral Capsule - Comp leted 12 HR timolol 5 MG/ML Ophtha lmic Solution - Completed hydrochlorothiazide 25 MG Or al Tablet - Completed sumatriptan 100 MG Oral Tablet 2023-09-07 T00:00:00Z - Completed sumatriptan 100 MG Oral Tablet 2023-06-26 T00:00:00Z - Completed 24 HR propranolol hydrochlor mellisa 60 MG Extended Release Oral Capsule - Comp leted 12 HR timolol 5 MG/ML Ophtha lmic Solution - Completed 24 HR propranolol hydrochlor mellisa 60 MG Extended Release Oral Capsule - Comp leted latanoprost 0.05 MG/ML Ophth almic Solution - Completed sumatriptan 100 MG Oral Tablet 2023-05-01 T00:00:00Z - Completed atorvastatin 20 MG Oral Tablet 2023-05-27 T00:00:00Z - Completed lorazepam 1 MG Oral Tablet [id number]: 00:00Z - Completed 12 HR timolol 5 MG/ML Ophtha lmic Solution - Completed 24 HR propranolol hydrochlor mellisa 60 MG Extended Release Oral Capsule - Comp leted latanoprost 0.05 MG/ML Ophth almic Solution - Completed latanoprost 0.05 MG/ML Ophth almic Solution - Completed sumatriptan 100 MG Oral Tablet 2023-11-12 T00:00:00Z - Completed Patient Care team information Name Category Status Period Participants - - Proposed period not known -
--- OUTSIDE RECORDS SUMMARY | 2024-11-07 17:21 | XMS_ITS | Clinical Summary ---
Author Organization [facility] Address [address] [place] [address] Care Team Providers Care Load Dropper Name Role Phone JamieFengArjunapurva Rosenthal DO Primary Care Provider [phone] Source Comments [facility],non-owned Affiliates and Associated Physician Practices is amultiple site organization consisting of ambulatory clinics and hospital sitesin [place], [place], [place]. This disclosure is being madepursuant to the Care Everywhere program and may not contain all information available regarding this patient. Last updated 18.[facility] Allergies Active Allergy Reactions Criticality Noted Date Comments Nsaids 04/25/2009 GI upset Polysorbate 80-Topiramate Palpitations 01/25/20 09 Irregular hearbeat Medications * Be aware that medications may not be up to date on this document. Alwaysverify current medications with the patient. OMEGA-3 PO Take 1000 mg by mouth daily. Active risedronate Sodium (ACTONEL) 150 MG tablet Take 150 mg by mouth every 30 days. Active guaifenesin ER 12hr (MUCINEX) 600 MG tablet Take 600 mg by mouth every 12 hours. prn Active VITAMIN D PO Take 1000 Int'l Units by mouth daily. Active vitamin C (ASCORBIC ACID) 500 MG tablet Take 500 mg by mouth daily. Active B COMPLEX PO Take by mouth daily. Active vitamin E (TOCOPHERYL) 400 UNIT capsule Take 400 Units by mouth daily. Active MAGNESIUM OXIDE PO Take by mouth daily. Active sumatriptan (IMITREX) 100 MG tablet Take by mouth. 1 at onset of headache may repeat one after 2 hr if headache persists 18 Tab 10 08/01/2010 Active divalproex ER 24hr (DEPAKOTE ER) 500 MG tablet Take 500 mg by mouth 2 times daily. Active naproxen (NAPROSYN) 500 MG tablet Take 500 mg by mouth as needed. Active diphenhydrAMINE (BENADRYL ALLERGY) 12.5 MG/5ML liquid Take 12.5 mg by mouth as needed. Active propranolol CR 24hr (INDERAL LA) 80 MG capsule 1qd 90 Cap 3 03/28/2011 Active meclizine (ANTIVERT) 25 MG tablet 1 tid prn 50 Tab 0 03/28/2011 Active ondansetron, disintegrating, (ZOFRAN ODT) 4 MG tablet 1 Tab every 8 hours as needed. 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 Family History Medical History Relation Name Comments Hypertension Brother Hypercholesterolemia Mother Hypertension Mother Hypercholesterolemia Sister 1 Hypertension Sister 2 Migraine Sister 3 Relation Name Status Comments Brother Father (Age 60) copd, chf Mother Alive Sister 1 Sister 2 Sister 3 Social History Tobacco Use Types Packs/Day Years Used Date Smoking Tobacco: Never Alcohol Use Standard Drinks/Week Comments Not Asked 0 (1 standard drink = 0.6 oz pur e alcohol) Comments No Sex and Gender Information Value Date Recorded Sex Assigned at Not on file Legal Sex Female 8:43 AM [employer] Gender Identity Not on file Sexual Orientation Not on file Last Filed Vital Signs Vital Sign Reading Time Taken Comments Blood Pressure 124/78 03/28/2011 12:57 PM CDT Pulse 80 03/28/2011 12:57 PM CDT Temperature 36.3 C (97.4 F) 04/25/2009 2:29 PM CDT Respiratory Rate 16 03/28/2011 12:57 PM CDT Oxygen Saturation - - Inhaled Oxygen Concentration - - Weight 77.6 kg (171 lb) 03/28/2011 12:57 PM CDT Height - - Body Mass Index - - Plan of Treatment Health Maintenance Due Date Last Done Comments BONE DENSITY TESTING 1950 COLOGUARD (AGES 45-75) - COL ON CA SCREENING 1949 COLON MONITORING 1949 COLONOSCOPY - COLON CA SCREENING 1949 CT COLONOGRAPHY - COLON CA SCREENING 1950 Colorectal Cancer Screening 1950 FIT - COLON CA SCREENING 1949 FLEX SIG - COLON CA SCREENING 1949 LIPID TESTING 1950 MAMMOGRAM 1950 HEPATITIS C SCREENING 02/14/1967 DTAP/TDAP/TD VACCINES (1 - Tdap) 02/19/1968 PNEUMOCOCCAL VACCINE 50+ (1 of 1 - PCV) 1999 ZOSTER VACCINE (1 of 2) 1999 Respiratory Syncytial Virus (RSV) Vaccine Pt: or over 60 yrs (1 - 1-dose 75+ series) 02/19/2024 COVID-19 VACCINE (2023-2 5 season) 2024 DEPRESSION SCREENING 07/20/2024 INFLUENZA VACCINE (Season Ended) 2025 HEPATITIS B VACCINE Aged Out No longe r eligible based on patient's age to complete this topic HIB VACCINE Aged Out No longer eligi ble based on patient's age to complete this topic HPV VACCINE Aged Out No longer eligi ble based on patient's age to complete this topic MENINGOCOCCAL (Group B) VACC INE SHARED DECISION-MAKING Aged Out No longer eligibl e based on patient's age to complete this topic MENINGOCOCCAL GROUPS A/C/Y/W VACCINE Aged Out No longer eligible b ased on patient's age to complete this topic Care Teams Load Dropper Relationship Specialty Start Date End Date Arjun Ayala DO [address] [address] PCP - General 10/27/09
== END 2024-11-07 15:23 | disposition home or self-care (01) ==
LOC: ANHIMG 15:24
PROVIDERS: PCP Internal Medicine; Visit Provider Internal Medicine
DX: Z12.31 Encounter for screening mammogram for malignant neoplasm of breast (principal)
CPT/HCPCS: 77063; 77067